=== PATIENT | female | born 1965 | race Caucasian/White ===

== ENCOUNTER 2017-04-09 07:32 | Inpatient (IN) | END 2017-04-11 17:20 | disposition home or self-care (01) | DRG 394 ==

== ENCOUNTER 2017-06-24 21:14 | Emergency (ER) | END 2017-06-25 01:38 | disposition home or self-care (01) ==

== ENCOUNTER 2017-09-04 16:05 | Emergency (ER) | END 2017-09-04 18:02 | disposition home or self-care (01) ==

== ENCOUNTER 2018-07-11 10:41 | Emergency (ER) | payer OTHER ==
[~2018-07-11] VITALS: Ht 165.1 cm; Wt 113.0 kg
[~2018-07-11 10:41] MED LIST: ALBU18HF INHALATION; ALBU2.5V3 NEB; ALBU8.5H8 INH; ATOR20TA38 PO; AZIT250T PO; CLON0.5T14 PO; CYCL10TA7 PO; DULA0.75 SQ; HYDR-4011 PO; IBUP-1544 PO; INSU100C SQ; LAMO25TA8 PO; LANT3I SC; METH750T93 PO; PRAM0.2539 PO
[2018-07-11 10:48] VITALS: Ht 165.1 cm; Wt 113.0 kg
[2018-07-11] MEDS ORDERED: HYDROmorphONE 1 MG/ML SYG IV STA ×2 (11:47→13:45)
[2018-07-11] MEDS ORDERED: SOD CHLORIDE 0.9% 1,000 ML IV STA (11:47)
[2018-07-11] MEDS ORDERED: ONDANSETRON 4 MG INJ IV STA ×3 (11:47→13:45)
[2018-07-11] MEDS ORDERED: KETOROLAC 30 MG INJ IV STA (11:47)
[2018-07-11] MEDS ORDERED: DIAZEPAM 5 MG/ML SYG IV ONE (12:00)
[2018-07-11] MEDS ORDERED: ATOR20TA38 PO (12:55)
[2018-07-11] MEDS ORDERED: LAMO100T PO (12:55)
[2018-07-11] MEDS ORDERED: ERGO500013 PO (12:56)
[2018-07-11] MEDS ORDERED: ESCI10TA48 PO (12:56)
[2018-07-11] MEDS ORDERED: LANT3I SC (12:57)
[2018-07-11] MEDS ORDERED: GABA300C16 PO (12:57)
[2018-07-11] MEDS ORDERED: PRAM0.25 PO (12:57)
[2018-07-11] MEDS ORDERED: INSU100C SQ (12:58)
[2018-07-11] MEDS ORDERED: DULA1.5P SQ (12:59)
[2018-07-11] MEDS ORDERED: TRAZ-111 PO (12:59)
[2018-07-11] MEDS ORDERED: MELA10CA PO (13:00)
[2018-07-11] MEDS ORDERED: METHYLPREDNISOLONE 125 MG INJ IV ONE (13:30)
[2018-07-11] MEDS ORDERED: HYDROmorphONE 2 MG/ML SYG IV STA (13:34)
--- NOTE | 2018-07-11 13:34 | ERD ---
ER Documentation Chief Complaint Chief Complaint CHRONIC BILATERIAL LEG PAIN CAN'T CONTROL PAIN HPI This is a 52-year-old female with a known history of chronic back pain. The patient had 2 previous surgeries with left foot drop. Her neurosurgeon is Dr. Ashton. The patient is scheduled to see him for a follow-up appointment on July 25, in two weeks, which was able to be moved up as she has been experiencing a significant amount of lower back pain. She has a chronic pain specialist who she sees and is currently waiting for pain patches. The patient presents to the emergency department today stating that she is having worsening of her symptoms. She states the pain is 10 out of 10 in intensity and now radiates down the la teral aspect of her right leg. The patient has been experiencing urinary incontinence but she states this is been present for over several months and has undergone an MRI. This is not a new neurological finding according to the patient. The patient denies any saddle anesthesia. She said no fevers or shaking or chills. She denies any alleviating factors to the pain and states the pain is exacerbated with movement. ROS All systems reviewed and are negative except as per history of present illness. Medications Home Meds Reported Medications Melatonin (Melatonin) 10 Mg Capsule, 10 MG PO HS PRN for PRN, CAP 07/11/18 Trazodone Hcl* (Trazodone Hcl*) 50 Mg Tablet, 50 MG PO QHS PRN for NEEDED, #30 TAB 07/11/18 Dulaglutide (Trulicity) 1.5 Mg/0.5 Ml Pen.injctr, 1.5 MG SQ Q WED 07/11/18 Insulin Lispro (Humalog) 100 Unit/1 Ml Cartridge, 0 SQ WITH MEALS, EA INJECT 15-30 UNITS TID WITH MEALS 07/11/18 Insulin Glargine* (Lantus*) 100 Unit/Ml Soln, 30 UNIT SC QHS, #1 VIAL 07/11/18 Pramipexole* (Pramipexole*) 0.25 Mg Tablet, 0.25 MG PO NEEDED, TAB 07/11/18 Gabapentin* (Gabapentin*) 300 Mg Capsule, 600 MG PO TID, #180 CAP 07/11/18 Ergocalciferol (Vitamin D2) (VITAMIN D2) 50,000 Unit Capsule, 31313 UNIT PO Q SUN, CAP 07/11/18 Escitalopram Oxalate* (Escitalopram Oxalate*) 10 Mg Tablet, 10 MG PO DAILY, #30 TAB 07/11/18 Atorvastatin Calcium* (Atorvastatin Calcium*) 20 Mg Tablet, 20 MG PO QHS, #30 TAB 07/11/18 Lamotrigine* (Lamotrigine*) 100 Mg Tablet, 100 MG PO QHS, TAB 07/11/18 Discontinued Reported Medications Albuterol Sulfate* (Albuterol Sulfate* Neb) 0.083%-3 Ml Neb, 1.25 MG NEB Q4H, #30 VIAL 06/24/17 Albuterol Sulfate* (Proair HFA*) 8.5 Gm Hfa.aer.ad, 2 PUFF INH Q4, #1 INHALER 06/24/17 Hydrocodone/Acetaminophen ([place] 5-325 Tablet) 1 Each Tablet, 1 EACH PO, TAB 06/24/17 Atorvastatin Calcium* (Atorvastatin Calcium*) 20 Mg Tablet, 20 MG PO QHS, #30 TAB 06/24/17 Ibuprofen* (Ibuprofen*) 800 Mg Tablet, 800 MG PO Q8, TAB 06/24/17 Cyclobenzaprine Hcl* (Cyclobenzaprine Hcl*) 10 Mg Tablet, 10 MG PO Q8 PRN for MUSCLE SPASMS, #60 TAB 06/24/17 Dulaglutide (Trulicity) 0.75 Mg/0.5 Ml Pen.injctr, 0.75 MG SQ QFRIDAY INJECT EVERY Saturday06/24/17 Insulin Lispro (Humalog) 100 Unit/1 Ml Cartridge, 50 UNIT SQ, EA 04/09/17 Insulin Glargine* (Lantus*) 100 Unit/Ml Soln, 70 UNIT SC QHS, #1 VIAL 04/09/17 Discontinued Scripts Methocarbamol* (Robaxin*) 750 Mg Tablet, 750 MG PO TID for muscle spasm, #20 TAB Prov:JONELLE PETERSEN DO 09/04/17 Hydrocodone/Acetaminophen ([place] 5-325 Tablet) 1 Each Tablet, 1 TAB PO Q6H PRN for PAIN, #15 TAB Prov:JONELLE PETERSEN DO 09/04/17 Albuterol Sulfate* (Ventolin HFA*) 18 Gm Hfa.aer.ad, 2 PUFF INHALATION Q4H, #1 INHALER Prov:MARCELO MOORE 06/25/17 Azithromycin* (Zithromax*) 250 Mg Tablet, 250 MG PO .ZPACK DIRECTED, #6 TAB TAKE 500 MG (2 TABS) THE FIRST DAY THEN 250 MG (1 TAB) DAYS 2-5 Prov:MARCELO MOORE Demetrio. 06/25/17 Albuterol Sulfate* (Albuterol Sulfate* Neb) 0.083%-3 Ml Neb, 2.5 MG NEB Q4 PRN for SHORTNESS OF BREATH, #30 EA Prov:MARCELO MOORE Atilio 06/25/17 Pramipexole* (Mirapex*) 0.25 Mg Tablet, 0.25 MG PO HS for 30 Days, TAB Prov:MARY ZAMORA MD 04/11/17 Lamotrigine* (Lamotrigine*) 25 Mg Tablet, 150 MG PO QHS for 30 Days, TAB Prov:MARY ZAMORA MD 04/11/17 Clonazepam* (Clonazepam*) 0.5 Mg Tablet, 0.5 MG PO AM for 30 Days, TAB Prov:MARY ZAMORA MD 04/11/17 Allergies Allergies: Coded Allergies: Penicillins (Unverified Allergy, Unknown, 07/11/18) PMhx/Soc History of Surgery: Yes ([id number], bowel [id number], lumBar [id number]) Anesthesia Reaction: No Hx Neurological Disorder: No Hx Respiratory Disorders: Yes (asthma) Hx Cardiac Disorders: No Hx Psychiatric Problems: Yes (bipolar disorder) Hx Miscellaneous Medical Probl: Yes (dm ) Hx Alcohol Use: No Hx Substance Use: Yes (marijuana) Hx Tobacco Use: Yes (cigarettes sometimes) Smoking Status: Current some day smoker Physical Exam Vitals Vital Signs Date Temp Pulse Resp B/P (MAP) Pulse Ox O2 O2 Flow FiO2 Time Delivery Rate 07/11/18 83 22 152/82 96 Room Air 12:24 (105) 07/11/18 98.5 92 20 109/63 96 10:48 (78) Physical Exam Constitutional:Well-developed. Well-nourished. Patient tearful lying in the left lateral decubitus position screaming in pain. HEENT:Normocephalic. Atraumatic.Pupils were equal round reactive to light. Moist mucous membranes.No tonsillar exudates. Respiratory: Not using accessory muscles of respiration.Lungs were clear to auscultation bilaterally. No rhonchi. No rales. No wheezing. Cardiovascular: Regular rate regular rhythm.No murmurs. No rubs were appreciated.S1, S2 normal. Distal pulses are palpable 2+ bilaterally. GI: Abdomen was obese so exam is limited due to body habitus nontender. Non Distended. No pulsatile abdominal masses or bruits. No rebound. No guarding. Bowel sounds were present and normal. Muscle skeletal: Patient ambulates with a walker. Straight leg test positive on the right. Foot drop present on the left. Skin: No petechia, no purpura. No lesions on the palms or the soles of the feet. No maculopapular rash. NEURO: Patient was alert, awake, orientated x3.No facial droop. Gait observed after pain control patient is able to ambulate with slow steady gait but utilizes a walker for assistance..Speech had regular rate and rhythm. No focal neurological deficits. Result Diagram: 07/11/18 1222 07/11/18 1222 Results 24 hrs Laboratory Tests Test 07/11/18 12:22 White Blood Count 16.7 10^3/ul Red Blood Count 5.36 10^6/ul Hemoglobin 15.7 g/dl Hematocrit 47.2 % Mean Corpuscular Volume 88.1 fl Mean Corpuscular Hemoglobin 29.3 pg Mean Corpuscular Hemoglobin Concent 33.3 g/dl Red Cell Distribution Width 14.4 % Platelet Count 342 10^3/UL Mean Platelet Volume 10.2 fl Immature Granulocytes % 0.400 % Neutrophils % 71.5 % Lymphocytes % 21.1 % Monocytes % 5.2 % Eosinophils % 1.4 % Basophils % 0.4 % Nucleated Red Blood Cells % 0.0 /100WBC Immature Granulocytes # 0.070 10^3/ul Neutrophils # 11.9 10^3/ul Lymphocytes # 3.5 10^3/ul Monocytes # 0.9 10^3/ul Eosinophils # 0.2 10^3/ul Basophils # 0.1 10^3/ul Nucleated Red Blood Cells # 0.0 10^3/ul Prothrombin Time 11.9 Sec Prothrombin Time Ratio 0.9 INR International Normalized Ratio 0.87 Activated Partial Thromboplast Time 27.5 Sec Sodium Level 139 mmol/L Potassium Level 4.3 mmol/L Chloride Level 104 mmol/L Carbon Dioxide Level 27 mmol/L Anion Gap 8 Blood Urea Nitrogen 7 mg/dl Creatinine 0.60 mg/dl Est Glomerular Filtrat Rate mL/min > 60 mL/min Glucose Level 137 mg/dl Calcium Level 9.8 mg/dl Total Bilirubin 0.4 mg/dl Direct Bilirubin 0.00 mg/dl Indirect Bilirubin 0.4 mg/dl Aspartate Amino Transf (AST/SGOT) 18 IU/L Alanine Aminotransferase (ALT/SGPT) 16 IU/L Alkaline Phosphatase 68 IU/L Total Protein 7.7 g/dl Albumin 4.3 g/dl Globulin 3.40 g/dl Albumin/Globulin Ratio 1.26 Current Medications Medications Dose Sig/Rufus Start Time Status Last (Trade) Ordered Route PRN Stop Time Admin Dose Reason Admin Sodium 1,000 ml @ Q1H STAT 07/11/18 DC 07/11/18 Chloride 1,000 mls/hr IV 11:47 13:01 07/11/18 12:46 1 mg ONCE STAT 07/11/18 DC 07/11/18 Hydromorphone IV 11:47 12:16 HCl 07/11/18 11:50 (Dilaudid) Ondansetron 4 mg ONCE STAT 07/11/18 DC 07/11/18 HCl (Zofran IV 11:47 12:16 Inj) 07/11/18 11:50 Ketorolac 30 mg ONCE STAT 07/11/18 DC 07/11/18 Tromethamine IV 11:47 13:01 (Toradol) 07/11/18 11:50 Diazepam 5 mg ONCE ONCE 07/11/18 DC 07/11/18 (Valium) IV 12:00 12:32 07/11/18 12:01 125 mg ONCE ONCE 07/11/18 DC 07/11/18 Methylprednis IV 13:30 13:26 olone Sodium 07/11/18 13:31 Succinate (Solu-Medrol) Procedures/MDM The patient presented to the emergency department with back pain. My differential diagnosis included but was not limited to spinal origins of the pain such as fracture, osteomyelitis, epidural abscess, neoplasm, spondylolish tesis, discogenic, cauda equina syndrome or musculoligamentous. Nonspinal causes such as AAA, upper UTI, renal colic, aortic dissection, abdominal neoplasm were also considered as an etiology into their pain. The patient had no new focal neurological deficits. I did feel her symptoms were result of lumbar radiculopathy. The patient received multiple doses of opiate analgesic medication, IV steroids and IV muscle relaxants. Her pain has now completely resolved. She was able to ambulate again utilizing a walker as this is what she requires at home. She does have a neurosurgical appointment follow-up in 2 weeks. She requested a prescription for muscle relaxants. This was provided to the patient after reviewing [facility]. The patient had leukocytosis with no left shift. This was thought to be secondary to her steroid use that she stated she just recently completed a Medrol Dosepak. She had no severe electrolyte abnormalities. The patient was discharged home in fair condition. They were instructed to return to the emergency department at any time if there was any worsening of their condition. The patient stated they would follow up with their PCP in the next 24-48 hours to initiate a suitable medication regimen under the care of their PCP as well as to allow their PCP to monitor any drug reactions. The patient was discharged home with prescriptions after they gave informed consent to the new medication. They were also fully informed by myself on the adverse e ffects and adverse drug interactions in order to provide adequate safeguards to prevent possible adverse reactions to medications. Departure Diagnosis: Primary Impression: Lumbar radiculopathy, chronic Condition: MARTHA Wolff MD July 11, 2018 13:34
[2018-07-11 13:43] VITALS: BP 124/94; PULSE 90; RESP 22
[2018-07-11] MEDS ORDERED: DIAZ5TAB PO (13:46)
== END 2018-07-11 14:08 | disposition home or self-care (01) ==
LOC: E/R 10:41
DX: M54.16 Radiculopathy, lumbar region (principal); J45.909 Unspecified asthma, uncomplicated; E11.9 Type 2 diabetes mellitus without complications; F17.210 Nicotine dependence, cigarettes, uncomplicated; Z79.4 Long term (current) use of insulin
CPT/HCPCS: 36415; 80053; 85025; 85610; 85730; 96361; 96374; 96375; 96376; J1170; J1885; J2405; J2930; J3360; J7030; Z7502

== ENCOUNTER 2018-08-26 04:20 | Inpatient (IN) | payer OTHER ==
[~2018-08-26] VITALS: Ht 165.1 cm; Wt 113.0 kg
[2018-08-26] VITALS (16 sets, daily range): BP systolic 117–212; BP diastolic 62–149; PULSE 96–118; RESP 17–26; Ht 165.1 cm; Wt 113.0 kg
[~2018-08-26 04:20] MED LIST changes: -ALBU18HF INHALATION; -ALBU2.5V3 NEB; -ALBU8.5H8 INH; -AZIT250T PO; -CLON0.5T14 PO; -CYCL10TA7 PO; +DIAZ5TAB PO; -DULA0.75 SQ; +DULA1.5P SQ; +ERGO500013 PO; +ESCI10TA48 PO; +GABA300C16 PO; -HYDR-4011 PO; -IBUP-1544 PO; +LAMO100T PO; -LAMO25TA8 PO; +MELA10CA PO; -METH750T93 PO; +PRAM0.25 PO; -PRAM0.2539 PO; +TRAZ-111 PO
[2018-08-26] MEDS ORDERED: ONDANSETRON 4 MG INJ IV STA ×2 (04:43→07:52)
[2018-08-26] MEDS ORDERED: SOD CHLORIDE 0.9% 500 ML IV STA (04:43)
[2018-08-26] MEDS ORDERED: HYDROmorphONE 1 MG/ML SYG IV STA ×2 (04:43→07:52)
--- NOTE | 2018-08-26 05:48 | ERD ---
ER Documentation Chief Complaint Chief Complaint BACK SX Aug, BACK PAIN, DISCHARGE, VOMITING HPI Is a 52-year-old female comes in with intractable back pain status post a August [address] Hernandez. Pain is uncontrolled at home. She has had some mild discharge from the surgical site. Denies any actual purulent drainage but says there is some yellowish fluid draining. Denies any numbness or tingling. Denies any other current issues. ROS All systems reviewed and are negative except as per history of present illness. Medications Home Meds Active Scripts Diazepam* (Valium*) 5 Mg Tablet, 5 MG PO Q8 PRN for MUSCLE SPASMS, #20 TAB Prov:MARTHA MARROQUIN MD 07/11/18 Reported Medications Melatonin (Melatonin) 10 Mg Capsule, 10 MG PO HS PRN for PRN, CAP 07/11/18 Trazodone Hcl* (Trazodone Hcl*) 50 Mg Tablet, 50 MG PO QHS PRN for NEEDED, #30 TAB 07/11/18 Dulaglutide (Trulicity) 1.5 Mg/0.5 Ml Pen.injctr, 1.5 MG SQ Q WED 07/11/18 Insulin Lispro (Humalog) 100 Unit/1 Ml Cartridge, 0 SQ WITH MEALS, EA INJECT 15-30 UNITS TID WITH MEALS 07/11/18 Insulin Glargine* (Lantus*) 100 Unit/Ml Soln, 30 UNIT SC QHS, #1 VIAL 07/11/18 Pramipexole* (Pramipexole*) 0.25 Mg Tablet, 0.25 MG PO NEEDED, TAB 07/11/18 Gabapentin* (Gabapentin*) 300 Mg Capsule, 600 MG PO TID, #180 CAP 07/11/18 Ergocalciferol (Vitamin D2) (VITAMIN D2) 50,000 Unit Capsule, 91720 UNIT PO Q SUN, CAP 07/11/18 Escitalopram Oxalate* (Escitalopram Oxalate*) 10 Mg Tablet, 10 MG PO DAILY, #30 TAB 07/11/18 Atorvastatin Calcium* (Atorvastatin Calcium*) 20 Mg Tablet, 20 MG PO QHS, #30 TAB 07/11/18 Lamotrigine* (Lamotrigine*) 100 Mg Tablet, 100 MG PO QHS, TAB 07/11/18 Allergies Allergies: Coded Allergies: Penicillins (Unverified Allergy, Unknown, 07/11/18) PMhx/Soc History of Surgery: Yes ([id number], bowel [id number], lumBar [id number]) Anesthesia Reaction: No Hx Neurological Disorder: No Hx Respiratory Disorders: Yes (asthma) Hx Cardiac Disorders: No Hx Psychiatric Problems: Yes (bipolar disorder) Hx Miscellaneous Medical Probl: Yes (dm ) Hx Alcohol Use: No Hx Substance Use: Yes (marijuana) Hx Tobacco Use: Yes (cigarettes sometimes) Physical Exam Vitals Vital Signs Date Temp Pulse Resp B/P (MAP) Pulse Ox O2 O2 Flow FiO2 Time Delivery Rate 08/26/18 98.2 101 18 39/65 (56) 95 04:22 Physical Exam Const: No acute distress Head: Atraumatic Eyes: Normal Conjunctiva ENT: Normal External Ears, Nose and Mouth. Neck: Full range of motion. No meningismus. Resp: Clear to auscultation bilaterally Cardio: Regular rate and rhythm, no murmurs Abd: Soft, non tender, non distended. Normal bowel sounds Skin: No petechiae or rashes Back: No midline or flank tenderness Ext: No cyanosis, or edema Neur: Awake and alert Psych: Normal Mood and Affect Result Diagram: 08/26/18 0459 Results 24 hrs Laboratory Tests Test 08/26/18 04:59 White Blood Count 20.5 10^3/ul Red Blood Count 5.29 10^6/ul Hemoglobin 15.4 g/dl Hematocrit 46.7 % Mean Corpuscular Volume 88.3 fl Mean Corpuscular Hemoglobin 29.1 pg Mean Corpuscular Hemoglobin Concent 33.0 g/dl Red Cell Distribution Width 14.1 % Platelet Count 304 10^3/UL Mean Platelet Volume 10.4 fl Immature Granulocytes % 0.900 % Neutrophils % 95.1 % Lymphocytes % 1.7 % Monocytes % 2.0 % Eosinophils % 0.0 % Basophils % 0.3 % Nucleated Red Blood Cells % 0.0 /100WBC Immature Granulocytes # 0.190 10^3/ul Neutrophils # 19.5 10^3/ul Lymphocytes # 0.3 10^3/ul Monocytes # 0.4 10^3/ul Eosinophils # 0.0 10^3/ul Basophils # 0.1 10^3/ul Nucleated Red Blood Cells # 0.0 10^3/ul Current Medications Medications Dose Sig/Rufus Start Time Status Last (Trade) Ordered Route PRN Stop Time Admin Dose Reason Admin Sodium 500 ml @ Q1H STAT 08/26/18 DC 08/26/18 Chloride 500 mls/hr IV 04:43 05:07 08/26/18 05:42 1 mg ONCE STAT 08/26/18 DC 08/26/18 Hydromorphone IV 04:43 05:07 HCl 08/26/18 04:44 (Dilaudid) Ondansetron 4 mg ONCE STAT 08/26/18 DC 08/26/18 HCl (Zofran IV 04:43 05:05 Inj) 08/26/18 04:44 Procedures/MDM Medical decision making: Patient has evidence of surgical site infection. Start antibiotics. Given pain medications. Patient will be admitted with Dr. Hernandez's consult pending insurance authorization. Departure Diagnosis: Primary Impression: Postoperative complication Surgical complication system/body Area: skin Surgical complication type: unspecified Procedure type: non-dermatologic Qualified Codes: L76.82 - Other postprocedural complications of skin and subcutaneous tissue Condition: Serious MARCELO MOORE Aug 26, 2018 05:48
[2018-08-26] MEDS ORDERED: VANCOMYCIN 1 GM (PMX) 250 ML IVPB ONE (06:00)
[2018-08-26] MEDS ORDERED: CLINDAMYCIN 600 MG INJ IVPB ONE (06:00)
[2018-08-26] MEDS ORDERED: CLINDAMYCIN 600 MG/D5W (PMX) 50 ML IVPB SCH (06:30)
[2018-08-26] MEDS ORDERED: IPRATROPIUM (NEB) 0.5 MG/2.5 ML AMP NEB STA (06:39)
[2018-08-26] MEDS ORDERED: ALBUTEROL 0.083% (NEB) 2.5 MG/3 ML AMP NEB STA (06:39)
[2018-08-26] MEDS: HYDROmorphONE 1 MG/ML SYG IV PRN ×2 (11:49→14:51)
[2018-08-26] MEDS: INSULIN ASPART [NOVOLOG] 3 ML PEN SC SCH ×3 (12:00→21:00)
[2018-08-26] MEDS ORDERED: ZOLPIDEM 5 MG TAB PO PRN (12:00)
[2018-08-26] MEDS ORDERED: DEXTROSE 5%-0.45% NACL 1,000 ML IV SCH (12:00)
[2018-08-26] MEDS ORDERED: VANCOMYCIN IV PER PHARMACY XX SCH ×2 (12:00→23:30)
--- NOTE | 2018-08-26 12:29 | HP ---
DATE OF ADMISSION: 08/26/2018 CHIEF COMPLAINT: Back pain. HISTORY OF PRESENT ILLNESS: A 52-year-old moderately obese female, status post lumbar laminectomy on 08/13/[address] Goyal, presents to the Emergency Room with complaints of severe low back pain. Leon ruff has noted some yellowish fluid draining from her surgical site. She has a chronic right foot d rop. White blood cell count was elevated at 20,500. Patient was evaluated by Dr. Goyal and planned to undergo I and D of the surgical site. PAST MEDICAL HISTORY: 1. Type 2 diabetes mellitus. 2. Hyperlipidemia. 3. Chronic asthma. 4. Chronic back pain. 5. Bipolar affective disorder. PAST SURGICAL HISTORY: Status post lumbar laminectomy on 08/13/2018. MEDICATIONS PRIOR TO ADMISSION: 1. Valium. 2. Melatonin. 3. Trazadone. 4. Trulicity. 5. Insulin. 6. Pramipexole. 7. Gabapentin. 8. Lexapro. 9. Lipitor. 10. Lamotrigine. THE PATIENT IS ALLERGIC TO PENICILLIN. SOCIAL HISTORY: Patient lives at home. She denies tobacco or alcohol use. PHYSICAL EXAMINATION: GENERAL: Well-developed, well-nourished, moderately obese female who is in mild distress. VITAL SIGNS: Stable. She is afebrile. HEENT: Extraocular muscles intact. Pupils equal and reactive to light bilaterally. Sclerae are ani cteric. Oropharynx is clear and moist. NECK: Supple, no JVD, no carotid bruits. LUNGS: Clear to auscultation bilaterally. CARDIAC: Regular rate and rhythm. No murmurs or gallops. ABDOMEN: Soft, obese, nontender, nondistended, normoactive bowel sounds. EXTREMITIES: No clubbing, cyanosis, or edema. Low back with incision with the surgical incision sit e. There is no surrounding erythema. NEUROLOGICAL: The patient has right-sided foot drop. LABORATORY DATA: Hemoglobin is 15.4, platelet count 304,000. Basic metabolic panel and liver functi on tests are all within normal limits. Albumin is 3.6. ASSESSMENT: 1. A 52-year-old female status post lumbar laminectomy involving L3-L4 on 08/13/2018. 2. Postop wound infection. 3. Chronic right foot drop. 4. Type 2 diabetes mellitus. 5. Hyperlipidemia. 6. Chronic asthma, compensated. 7. Bipolar affective disorder. PLAN: 1. Admit to med/surg, keep patient n.p.o., IV vancomycin and Zosyn. 2. Patient is cleared medically to undergo incision and drainage of the wound. Dictated By: MICHAEL SALAMANCA MD SK/NTS Conf#: [id number] DID#: [id number] CC: VANI GOYAL MD;*End*
[2018-08-26] MEDS ORDERED: GLUCAGON 1 MG INJ IM PRN (12:30)
[2018-08-26] MEDS ORDERED: GLUCOSE GEL 15 GRAM TUBE BUCCAL PRN (12:30)
[2018-08-26] MEDS ORDERED: GLUCOSE GEL 15 GRAM TUBE PO PRN ×2 (12:30)
[2018-08-26] MEDS ORDERED: DEXTROSE 50% 50 ML SYRINGE IV PRN ×2 (12:30)
[2018-08-26] MEDS ORDERED: VANCOMYCIN 1 GM 250 ML IVPB SCH (13:00)
[2018-08-26] MEDS ORDERED: LEVOFLOXACIN 750MG/D5W (PMX) 150 ML IVPB SCH (13:30)
[2018-08-26] MEDS: ONDANSETRON 4 MG INJ IV PRN (14:59)
--- NOTE | 2018-08-26 17:41 | CONS ---
Assessment/Plan Assessment/Plan Assessment/Plan (Daily) Date of consultation: 08/26/2018 Requesting physician:Dr. Akbar with the emergency department Consulting service: Neurosurgery This is a 52-year-old female with past medical history significant for obesity, diabetes, hyperlipidemia, chronic pain with a long history of chronic back pain. The patient has undergone at least 3 lumbar surgeries in the past. She had initially undergone a reported L4-5 laminectomy, microdiscectomy by another neurosurgeon several years ago followed by a subsequent redo surgery several months later for what the patient believes to have been recurrent stenosis/disc herniation. According to the patient she was left with partial left foot drop at the time. Ever since then she has had increased low back pain and bilateral lower extremity pain. More recently, the patient developed further excruciating pain radiating down the right lower extremity associated with numbness and weakness. She was found to have an L3-4 disc herniation on the right. She underwent a minimally invasive L3-4 laminectomy, medial facetectomy/foraminotomy and microdiscectomy approximately 2 weeks ago on an outpatient basis. The patient did very well postoperatively and as a matter of fact her preoperative right lower extremity radiating pain and numbness significantly improved if not fully resolved up until approximately 2-3 days ago. The patient noticed increased axial low back pain and also noticed intermittent "yellowish thin" discharge from her small lumbar incision. She contacted my office yesterday in regards to the lumbar incision and a prescription for clindamycin was sent to her pharmacy and appointment was given to the patient to follow-up with me today in clinic. However, since the patient was having more low back pain and some nausea, she presented to the emergency department instead overnight. She was found to have an elevated white blood cell count greater than 20 and neurosurgery has been consulted. The patient has not had any vomiting but has nausea. She denies headaches, diplopia, blurriness of her vision. She has poor appetite starting yesterday. She denies dysuria. She denies radiating pain or numbness down her lower extremities. However, any movement causes increased low back pain. The patient sees pain management for chronic pain and has been previously rec eived narcotic medications. She is currently receiving a Butrans patch. Past medical history: Please see above + asthma, bipolar affective disorder, L4- 5 laminectomy 2 (by another surgeon several years ago), L3-4 laminectomy and microdiscectomy (2 weeks ago) Allergies: Penicillin? (The patient has already received Ancef during her most recent lumbar surgery without any side effects) Review of systems: The patient denies chest pain or shortness of breath. Please see above for pertinent positives and negatives. Family history: Not contributory Social history: Denies use of EtOH, tobacco, illicit or recreational drugs. Physical examination: This is a middle-aged obese female lying in bed. She appears to be in some distress that she relates to low back pain with movement. Patient is awake alert and oriented 4. Language is fluent. Face is symmetric. Extraocular movements are grossly normal. Tongue is midline. Shoulder shrugs are symmetric. Muscle bulk and tone is normal bilateral upper and lower extremities. Deep tendon reflexes are 1+ bilateral upper and lower extremities. Sensation to light touch is decreased involving the left posterior lateral leg and the dorsum of the left foot more than the plantar surface of the left foot. Motor Strength bilateral upper extremities is 5- out of 5. Motor strength bilateral lower extremities proximally is 4- out of 5 and limited secondary to pain. Motor strength with right ankle dorsiflexion and plantar flexion is at least 4+ out of 5, left ankle dorsiflexion 2 out of 5 (per previous baseline), left ankle plantar flexion 4 out of 5. There is no Danilo sign present bilaterally. There is no dysdiadochokinesia bilaterally. There is no dysmetria bilaterally. Toes are downgoing bilaterally. Gait testing has been deferred due to the patient's severe low back pain pain. CERVICAL SPINE: Examination of the cervical spine reveals no significant rigidity or pain. CERVICAL SPINE ACTIVE RANGE OF MOTION: Near full. LUMBOSACRAL SPINE: Examination of the lumbar spine reveals the patient's most recent small right paraspinal vertical incision to have a scab in the superior two thirds and a small area of dehiscence in the inferior one third of the incision. There is no significant jarrett-incisional erythema. There is a small amount of serosanguineous discharge. There is no obvious purulent drainage seen. LUMBOSACRAL SPINE ACTIVE RANGE OF MOTION: Cannot be done due to the patient's low back pain. Imaging: None imaging studies available. Assessment/plan: This is a middle-aged obese diabetic patient with chronic back pain status post multiple lumbar surgeries in the past with the most recent taking place 2 weeks ago as described above. The patient is at her baseline neurologic status (left partial foot drop related to the patient's initial operation done by another neurosurgeon several years ago) with an fact improvement/near full resolution of her preoperative right lower extremity radicular pain after her most recent lumbar surgery 2 weeks ago. The patient has had 2-3 days of increased low back pain without radicular pain or new sensory motor deficits. The patient's small lumbar incision does not have erythema and purulent drainage but there is some dehiscence of the inferior part of the incision with a small amount of serosanguineous drainage that may be related to an infection in the setting of her elevated white blood cell count. Suspicion for a surgical related CSF leak is low given the fact that there was no intraoperative CSF leak during the patient's surgery 2 weeks ago. As I have explained to the patient, I would recommend exploration of her wound for closer intraoperative inspection under the microscope, irrigation and possible debridement of the wound, reapproximation of the wound and possible placement of an epifascial drain that will remain in place for the next 5-7 days even while the patient is at home. I have also discussed the risks and benefits of the above operation to the patient and her mother in detail with the risks including bleeding, infection, weakness, numbness, paralysis, bowel or bladder function, cerebrospinal fluid leak, failure of improvement of symptoms or worsening of her symptoms, need for further surgeries including redo decompression or redo debridement or need for lumbar fusion as well as those risks associated with surgery and general anesthesia including deep venous thrombosis, pulmonary embolism, heart attack, stroke, pneumonia and . The patient will also need postoperative antibiotics. The patient and her mother fully understand the above discussion and wish to proceed with the above surgery. VANI GOYAL MD Aug 26, 2018 17:41
--- NOTE | 2018-08-26 17:45 | PREAC ---
Date/Time of Note Date/Time of Note DATE: 08/26/18 TIME: 17:44 Anesthesia Eval and Record Evaluation Time Pre-Procedure Interview DATE: 08/26/18 TIME: 17:44 Age 52 Sex female NPO: 8 hrs Preoperative diagnosis status post lumbar laminectomy Planned procedure exploration of lumbar wound, irrigation and debridement and possbile placement of drain Past Medical History Past Medical History: Includes Cardio: Dyslipidemia Endo: Diabetes Pulm: Asthma GI: Morbid obesity Psych: Bipolar Surgery & Anesthesia Issues No known issue Meds Anticoagulation: No Beta Shellie within 24 hr: No Reason Beta Shellie not given: Pt. not on B-Shellie Reported Medications Melatonin (Melatonin) 10 Mg Capsule, 10 MG PO HS PRN for PRN, CAP 07/11/18 Trazodone Hcl* (Trazodone Hcl*) 50 Mg Tablet, 50 MG PO QHS PRN for NEEDED, #30 TAB 07/11/18 Dulaglutide (Trulicity) 1.5 Mg/0.5 Ml Pen.injctr, 1.5 MG SQ Q WED 07/11/18 Insulin Lispro (Humalog) 100 Unit/1 Ml Cartridge, 0 SQ WITH MEALS, EA INJECT 15-30 UNITS TID WITH MEALS 07/11/18 Insulin Glargine* (Lantus*) 100 Unit/Ml Soln, 30 UNIT SC QHS, #1 VIAL 07/11/18 Pramipexole* (Pramipexole*) 0.25 Mg Tablet, 0.25 MG PO NEEDED, TAB 07/11/18 Gabapentin* (Gabapentin*) 300 Mg Capsule, 600 MG PO TID, #180 CAP 07/11/18 Ergocalciferol (Vitamin D2) (VITAMIN D2) 50,000 Unit Capsule, 29874 UNIT PO Q SUN, CAP 07/11/18 Escitalopram Oxalate* (Escitalopram Oxalate*) 10 Mg Tablet, 10 MG PO DAILY, #30 TAB 07/11/18 Atorvastatin Calcium* (Atorvastatin Calcium*) 20 Mg Tablet, 20 MG PO QHS, #30 TAB 07/11/18 Lamotrigine* (Lamotrigine*) 100 Mg Tablet, 100 MG PO QHS, TAB 07/11/18 Discontinued Scripts Diazepam* (Valium*) 5 Mg Tablet, 5 MG PO Q8 PRN for MUSCLE SPASMS, #20 TAB Prov:MARTHA MARROQUIN MD 07/11/18 Current Medications Hydromorphone HCl (Dilaudid) 1 mg Q3H PRN IV SEVERE PAIN LEVEL 7-10 Last administered on 08/26/18at 14:51; Admin Dose 1 MG; Start 08/26/18 at 11:45 Vancomycin HCl (Vanco Iv Per Pharmacy) VANCOMYCIN PER PHARMACY PER PROTOCOL XX ; Start 08/26/18 at 12:00 Levofloxacin/ Dextrose 150 ml @ 100 mls/hr Q24H IVPB Last administered on 08/26/18at 16:33; Admin Dose 100 MLS/HR; Start 08/26/18 at 13:30 Zolpidem Tartrate (Ambien) 5 mg HS MAY REPEAT X 1 PRN PO INSOMNIA; Start 08/26/18 at 12:00 Ondansetron HCl (Zofran Inj) 4 mg Q4H PRN IV NAUSEA AND/OR VOMITING Last administered on 08/26/18at 14:59; Admin Dose 4 MG; Start 08/26/18 at 12:00 Dextrose/Sodium Chloride 1,000 ml @ 125 mls/hr Q8H IV Last administered on 08/26/18at 13:52; Admin Dose 125 MLS/HR; Start 08/26/18 at 12:00 Insulin Aspart (Novolog Insulin Pen) NOVOLOG *MODERATE* ALGORITHM WITH MEALS BEDTIME SC ; Start 08/26/18 at 12:00 Miscellaneous Information 1 ea NOTE XX ; Start 08/26/18 at 12:30 Glucose (Glutose) 15 gm Q15M PRN PO DECREASED GLUCOSE; Start 08/26/18 at 12:30 Glucose (Glutose) 22.5 gm Q15M PRN PO DECREASED GLUCOSE; Start 08/26/18 at 12:30 Dextrose (D50w Syringe) 25 ml Q15M PRN IV DECREASED GLUCOSE; Start 08/26/18 at 12:30 Dextrose (D50w Syringe) 50 ml Q15M PRN IV DECREASED GLUCOSE; Start 08/26/18 at 12:30 Glucagon (Glucagen) 1 mg Q15M PRN IM DECREASED GLUCOSE; Start 08/26/18 at 12:30 Glucose (Glutose) 15 gm Q15M PRN BUCCAL DECREASED GLUCOSE; Start 08/26/18 at 12:30 Vancomycin HCl 1.75 gm/Sodium Chloride 500 ml @ 125 mls/hr Q12H IVPB ; Start 08/27/18 at 01:00 Meds reviewed: Yes Allergies Coded Allergies: Penicillins (Unverified Allergy, Unknown, 08/26/18) Allergies Reviewed: Yes Labs/Studies Labs Reviewed: Reviewed by anesthesiologist Result Diagram: 08/26/18 0459 08/26/18 0459 Laboratory Tests 08/26/18 04:59 test: Negative Pre-procedure Exam Last vitals Vital Signs Date Temp Pulse Resp B/P (MAP) Pulse Ox O2 O2 Flow FiO2 Time Delivery Rate 08/26/18 98.9 105 18 141/62 96 15:01 (88) 08/26/18 Room Air 10:01 08/26/18 28 07:42 08/26/18 3.0 06:42 Airway: Adequate mouth opening, Adequate thyromental dist Mallampati: Mallampati II Teeth: Abnormal (chipped tooth which needs crown) Lung: Normal Heart: Normal ASA Physical Status ASA physical status: 3 Emergency: None Planned Anesthetic General/MAC: ETT Planned Pain Management Parenteral pain med Pre-operative Attestations Prior to commencing anesthesia and surgery, the patient was re-evaluated, there was verification of: *The patient's identity *The results of appropriate recent lab work and preoperative vital signs *The above evaluation not changing prior to induction *Anesthetic plan, risk benefits, alternative and complications discussed with patient/family; questions answered; patient/family understands, accepts and wishes to proceed. RINKU BARR MD Aug 26, 2018 17:45
[2018-08-26] MEDS ORDERED: BUPIVACAINE 0.5% (SDV) 30 ML INJ ONE (17:47)
[2018-08-26] MEDS ORDERED: LIDOCAINE 1%/EPI 30 ML INJ ONE (17:47)
[2018-08-26] MEDS ORDERED: GELATIN SIZE 100 SPONGE ONE (17:47)
[2018-08-26] MEDS ORDERED: THROMBIN 5000 UNIT (RECOTHROM) VIAL ONE (17:47)
[2018-08-26] MEDS ORDERED: POLYMYXIN/BACITRACIN 1L IRRIG ONE (17:48)
[2018-08-26] MEDS ORDERED: FENTAnyl 50 MCG/ML VIAL IV PRN (18:00)
[2018-08-26] MEDS ORDERED: ONDANSETRON 4 MG INJ IV PRN (18:00)
[2018-08-26] MEDS ORDERED: PROCHLORPERAZINE 10 MG INJ IV PRN (18:00)
[2018-08-26] MEDS ORDERED: LABETALOL HCL 20MG INJ IV PRN (18:00)
[2018-08-26] MEDS ORDERED: hydrALAzine 20 MG INJ IV PRN (18:00)
[2018-08-26] MEDS ORDERED: MEPERIDINE 25 MG INJ IV PRN (18:00)
[2018-08-26] MEDS ORDERED: DIPHENHYDRAMINE 50 MG INJ IV PRN (18:00)
[2018-08-26] MEDS ORDERED: HYDROmorphONE 1 MG/5 ML IV SYRINGE IV PRN ×3 (18:00)
[2018-08-26] MEDS ORDERED: SEVOFLURANE 15 MIN ONE (18:10)
[2018-08-26] MEDS ORDERED: PIPER-TAZO 3.375 GM IV (PMX) 100 ML ONE (18:13)
[2018-08-26] MEDS ORDERED: MIDAZOLAM 1 MG/ML 2 ML INJ ONE (18:18)
[2018-08-26] MEDS ORDERED: ONDANSETRON 4 MG INJ ONE (18:47)
[2018-08-26] MEDS ORDERED: FAMOTIDINE 20 MG INJ ONE (18:47)
[2018-08-26] MEDS ORDERED: LIDOCAINE 2% (SDV) 5 ML INJ ONE (18:47)
[2018-08-26] MEDS ORDERED: SUCCINYLCHOLINE CHLORIDE 100 MG/5 ML SYG IV ONE (18:47)
[2018-08-26] MEDS ORDERED: PHENYLephrine (100 MCG/ML) 10ML SYG ONE (18:47)
[2018-08-26] MEDS ORDERED: PROPOFOL 40 ML ONE (18:47)
[2018-08-26] MEDS ORDERED: NEOMYC/POLYMYX/BACIT 30 GM OINT ONE (19:30)
--- NOTE | 2018-08-26 19:58 | PAC ---
Date/Time of Note Date/Time of Note DATE: 08/26/18 TIME: 19:57 Post-Anesthesia Notes Post-Anesthesia Note Last documented vital signs Vital Signs Date Temp Pulse Resp B/P (MAP) Pulse Ox O2 O2 Flow FiO2 Time Delivery Rate 08/26/18 98.0 19:51 08/26/18 105 18 141/62 96 15:01 (88) 08/26/18 Nasal 2.0 12:00 Cannula 08/26/18 28 07:42 Activity: WNL Respiratory function: WNL Cardiovascular function: WNL Mental status: Baseline Pain reasonably controlled: Yes Hydration appropriate: Yes Nausea/Vomiting absent: Yes Comments BP: 133/75 HR: 99 RR: 15 T: 98 SaO2: 98% RINKU BARR MD Aug 26, 2018 19:58
[2018-08-26] MEDS ORDERED: traZODone 50 MG TAB PO PRN (20:00)
--- NOTE | 2018-08-26 20:02 | SIPON ---
Date/Time of Note Date/Time of Note DATE: 08/26/18 TIME: 20:00 Operative Report Preoperative Diagnosis Lumbar wound dehiscence Postoperative Diagnosis Same as above Operation/Procedure Performed Exploration of lumbar wound and epidural space Deep irrigation and debridement of wound Placement of subcutaneous drain Surgeon see signature line assisted living associate None Anesthesia: general Estimated blood loss: 0 - 10 ml's Transfusion Required none Specimen Deep lumbar culture Grafts/Implants none Complications none VANI GOYAL MD Aug 26, 2018 20:02
[2018-08-26] MEDS: ALBUTEROL/IPRATROPIUM (NEB) 3 ML AMP HHN SCH (21:00)
[2018-08-26] MEDS ORDERED: HYDROmorphONE 1 MG/ML SYG IV PRN ×3 (22:12→22:30)
[2018-08-26] MEDS ORDERED: VANCOMYCIN 1 GM (PMX) 250 ML IVPB SCH (23:00)
[2018-08-26] MEDS: GABAPENTIN 300 MG CAP PO SCH (23:08)
[2018-08-26] MEDS: LAMOTRIGINE 100 MG TAB PO SCH (23:08)
[2018-08-26] MEDS: ATORVASTATIN 20 MG TAB PO SCH (23:08)
[2018-08-26] MEDS: INSULIN GLARGINE [LANTus] (100 UNITS/ML) SYG SC SCH (23:26)
[2018-08-26] MEDS: ACETAMINOPHEN 325 MG TAB PO PRN (23:29)
--- NOTE | 2018-08-26 23:45 | OPR ---
Date/Time of Note Date/Time of Note DATE: 08/26/18 TIME: 23:45 Operative Report Procedure Date: Aug 26, 2018 Preoperative Diagnosis please see below. Postoperative Diagnosis please see below. Operation/Procedure Performed please see below. Surgeon see signature line Floral Merchandiser None Anesthesia Type: general Estimated Blood Loss: 0 - 10 ml's Transfusion none Specimen please see below. Grafts/Implants none Tubes/Drains please see below. Complications none Pt Condition Post Procedure: stable Disposition: PACU Procedure Description Date of operation: 08/26/2089 Operating surgeon: Vani Goyal M.D. Preoperative diagnosis: Lumbar wound dehiscence Post operative diagnosis: Lumbar wound dehiscence Procedure(s) performed: 1. Exploration of lumbar wound and epidural space 2. Deep irrigation and debridement of lumbar wound. 3. Reapproximation of lumbar wound in multiple layers 4. Placement of an epifascial drain 5. Intraoperative microscope with microdissection. Indication for procedure: Please look at the inpatient consultation note for a full set of indications. Description of operative procedure: The patient was brought to the operating room and after general anesthesia was obtained, she was placed prone on top of the Esvin frame. Her arms were abducted less than 90 and placed in superman position. All pressure points were noted and padded appropriately. The Esvin frame was raised. The patient's right small paraspinal lumbar incision was located. After the skin was prepped and draped under standard sterile fashion, the partial scab on the incision was fully removed and the skin edges were cut away. Two cotton swabs were put in the deep tissue for aerobic anaerobic culture and sent away. Antibiotics were given to the patient only after the wound culture was obtained. The small fascial defect from the patient's recent lumbar surgery was located by finger dissection and serial tube dilators were inserted through the fascial defect. The final tube dilator was inserted and locked to the table in that position. The operating microscope was brought into the field. The dura that had been exposed during the patient's prior decompressive surgery was visualized. The dura appeared to be grossly intact. There was no purulent drainage noted superficially or deep. The wound was copiously irrigated with antibiotic solution. The muscle and fascia layers were reapproximated with interrupted sutures under the microscope. Size 7 flat drain was placed in the epifascial space and the other end of it was brought out the skin away from the incision site. The dermal layer was reapproximated with interrupted sutures. The skin was reapproximated with a simple running Monocryl 2-0. The drain was secured at its exit site to the skin with a suture and connected to WILLIAMS bulb and activated. The incision and drain were covered up with a dressing. The patient was then placed supine on the hospital bed. She was then woken up, extubated and transported to the recovery room in stable condition. The patient was awake and alert in the recovery room and moving her upper and lower extremities to command per preoperative baseline. Estimated blood loss: Less than 10 cc Blood products administered: None Packs/drains: Size 10 flat drain Type of anesthesia: General Incision: Right paraspinal lumbar Skin closure: Simple running Monocryl 2-0 Wound classification: Clean contaminated Specimen removed: Lumbar deep wound culture Patient's condition: Stable Prognosis: Good VANI GOYAL MD Aug 26, 2018 23:45
[2018-08-27] VITALS (20 sets, daily range): BP systolic 76–173; BP diastolic 52–97; PULSE 84–113; RESP 15–35
[2018-08-27] MEDS: HYDROmorphONE 1 MG/ML SYG IV PRN ×3 (00:12→14:50)
[2018-08-27] MEDS ORDERED: VANCOMYCIN HCL 1.75 GM in SOD CHLORIDE 0.9% 500 ML IVPB SCH ×4 (01:00)
[2018-08-27] MEDS: ALBUTEROL/IPRATROPIUM (NEB) 3 ML AMP HHN SCH ×6 (01:00→19:19)
[2018-08-27] MEDS: INSULIN ASPART [NOVOLOG] 3 ML PEN SC SCH ×5 (07:35→20:51)
[2018-08-27] MEDS: PIPER-TAZO 3.375 GM IV (PMX) 100 ML IVPB SCH ×3 (08:46→20:41)
[2018-08-27] MEDS: GABAPENTIN 300 MG CAP PO SCH ×4 (09:00→20:54)
[2018-08-27] MEDS: PRAMIPEXOLE 0.25 MG TAB PO SCH (09:00)
[2018-08-27] MEDS: ESCITALOPRAM 10 MG TAB PO SCH (09:20)
[2018-08-27] MEDS: ONDANSETRON 4 MG INJ IV PRN ×3 (11:07→20:38)
--- NOTE | 2018-08-27 13:07 | PN ---
Date/Time of Note Date/Time of Note DATE: 08/27/18 TIME: 13:04 Subjective Patient reports feeling better. No abdominal pain, nausea, or vomiting. Low back pain improved Objective Vitals Vital Signs Date Temp Pulse Resp B/P (MAP) Pulse Ox O2 O2 Flow FiO2 Time Delivery Rate 08/27/18 98.5 84 18 113/92 95 Nasal 2.0 12:00 (99) Cannula 08/26/18 28 07:42 Intake and Output 08/26/18 08/26/18 08/27/18 1515:00 23:00 07:00 IntakeIntake Total 0 ml 1700 ml 950 ml OutputOutput Total 10 ml 1321 ml BalanceBalance 0 ml 1690 ml -371 ml Neck supple Clear to auscultation bilaterally Regular rate and rhythm Soft nontender nondistended normoactive bowel sounds Lumbar area with WILLIAMS drain in place No edema Results Result Diagram: 08/27/18 0427 08/26/18 0459 Medications Medications Current Medications Hydromorphone HCl (Dilaudid) 1 mg Q3H PRN IV SEVERE PAIN LEVEL 7-10 Last administered on 08/27/18at 11:07; Admin Dose 1 MG; Start 08/26/18 at 11:45 Zolpidem Tartrate (Ambien) 5 mg HS MAY REPEAT X 1 PRN PO INSOMNIA; Start 08/26/18 at 12:00 Ondansetron HCl (Zofran Inj) 4 mg Q4H PRN IV NAUSEA AND/OR VOMITING Last administered on 08/27/18at 11:07; Admin Dose 4 MG; Start 08/26/18 at 12:00 Insulin Aspart (Novolog Insulin Pen) NOVOLOG *MODERATE* ALGORITHM WITH MEALS BEDTIME SC Last administered on 08/27/18at 11:59; Admin Dose 2 UNIT; Start 08/26/18 at 12:00 Miscellaneous Information 1 ea NOTE XX ; Start 08/26/18 at 12:30 Glucose (Glutose) 15 gm Q15M PRN PO DECREASED GLUCOSE; Start 08/26/18 at 12:30 Glucose (Glutose) 22.5 gm Q15M PRN PO DECREASED GLUCOSE; Start 08/26/18 at 12:30 Dextrose (D50w Syringe) 25 ml Q15M PRN IV DECREASED GLUCOSE; Start 08/26/18 at 12:30 Dextrose (D50w Syringe) 50 ml Q15M PRN IV DECREASED GLUCOSE; Start 08/26/18 at 12:30 Glucagon (Glucagen) 1 mg Q15M PRN IM DECREASED GLUCOSE; Start 08/26/18 at 12:30 Glucose (Glutose) 15 gm Q15M PRN BUCCAL DECREASED GLUCOSE; Start 08/26/18 at 12:30 Albuterol/ Ipratropium (Duoneb) 3 ml Q4H RESP THERAPY HHN Last administered on 08/27/18at 08:40; Admin Dose 3 ML; Start 08/26/18 at 21:00 Atorvastatin Calcium (Lipitor) 20 mg QHS PO Last administered on 08/26/18 23:08; Admin Dose 20 MG; Start 08/26/18 at 21:00 Ergocalciferol (Drisdol) 50,000 unit Cunningham@0900 PO ; Start 08/31/18 at 09:00 Escitalopram Oxalate (Lexapro) 10 mg DAILY PO Last administered on 08/27/18 09:20; Admin Dose 10 MG; Start 08/27/18 at 09:00 Gabapentin (Neurontin) 600 mg TID PO Last administered on 08/26/18at 23:08; Admin Dose 600 MG; Start 08/26/18 at 21:00 Insulin Glargine (Lantus) 30 units QHS SC Last administered on 08/26/18at 23:26; Admin Dose 30 UNITS; Start 08/26/18 at 21:00 Lamotrigine (Lamictal) 100 mg QHS PO Last administered on 08/26/18 23:08; Admin Dose 100 MG; Start 08/26/18 at 21:00 Pramipexole (Mirapex) 0.25 mg DAILY PO ; Start 08/27/18 at 09:00 Trazodone HCl (Desyrel) 50 mg QHS PRN PO NEEDED; Start 08/26/18 at 20:00 Piperacillin Sod/ Tazobactam Sod 100 ml @ 200 mls/hr Q8 IVPB Last administered on 08/27/18at 08:46; Admin Dose 200 MLS/HR; Start 08/27/18 at 07:01 Acetaminophen (Tylenol Tab) 650 mg Q6H PRN PO MILD PAIN(1-3)OR ELEVATED TEMP Last administered on 08/26/18at 23:29; Admin Dose 650 MG; Start 08/26/18 at 23:00 Vancomycin HCl (Vanco Iv Per Pharmacy) VANCOMYCIN PER PHARMACY PER PROTOCOL XX ; Start 08/26/18 at 23:30 Vancomycin/Sodium Chloride 250 ml @ 83.333 mls/ hr Q12H IVPB ; Start 08/27/18 at 14:00 Miscellaneous Information (*Rx Drug Level Order Reminder*) VANCO TR AT 0100 0100 ONCE XX ; Start 08/29/18 at 01:00; Stop 08/29/18 at 01:01 VTE Prophylaxis Risk score (from [facility] [place])>0 risk: 3 SCD applied (from [facility] [place]): Yes Lines/Catheters IV Catheter Type: Saline Lock Locke in Place: No Assessment/Plan Assessment/Plan 52-year-old female with postop wound infection Postop day #1 lumbar exploration and irrigation Gram-negative humberto bacteremia of unclear source Status post L3-L4 laminectomy on August 13, 2018 Type 2 diabetes mellitus Hyperlipidemia Bipolar affective disorder Leukocytosis Continue vancomycin and Zosyn Check final blood culture results Transfer to [facility] Plan of care was discussed with Dr. Ashton and the patient MICHAEL SALAMANCA MD Aug 27, 2018 13:07
[2018-08-27] MEDS: VANCOMYCIN 1.5 GM/NS 250 ML 250 ML IVPB SCH (14:57)
[2018-08-27] MEDS: ATORVASTATIN 20 MG TAB PO SCH (20:40)
[2018-08-27] MEDS: LAMOTRIGINE 100 MG TAB PO SCH (20:40)
[2018-08-27] MEDS: INSULIN GLARGINE [LANTus] (100 UNITS/ML) SYG SC SCH ×3 (20:48→23:03)
[2018-08-27] MEDS: SOD CHLORIDE 0.9% 1,000 ML IV SCH (22:59)
[2018-08-27] MEDS: DOCUSATE SODIUM 100 MG CAP PO SCH (23:00)
--- NOTE | 2018-08-27 23:17 | PN ---
Date/Time of Note Date/Time of Note DATE: 08/27/18 TIME: 23:16 Assessment/Plan Assessment/Plan Date of progress note: 08/27/2018 The patient is postop day 1 status post exploration of her lumbar wound, I&D, reapproximation of the wound and placement of an epifascial drain. The patient is overall doing better compared to yesterday at the time of her admission. Her low back pain has markedly improved and the patient is overall more mobile at least in bed. Her nausea is also somewhat improved although she still has some nausea intermittently. She was able to have a small amount of food earlier today. She tried to get out of bed with physical therapy earlier today but got lightheaded and was not able to continue standing. Locke catheter is in place. She is awake alert and oriented 4. Her face is symmetric. Sensory motor exam is at her preoperative baseline with an established chronic left partial foot drop. The patient does not have any pain radiating down her lower extremities. Her lumbar incision is clean dry and intact with a dressing in place. The patient's WILLIAMS drain has put out less than 10 cc of serosanguineous discharge throughout the daytime today. Her white blood cell count had decreased to 7 last night and has gone up back to 20 this morning. She is on vancomycin and Zosyn at this time. The etiology of the patient's gram-negative humberto bacteremia is unclear at this time. Assessment/plan: The patient is overall improved clinically. She may get out of bed and ambulate with physical therapy tomorrow. The epifascial drain will need to be continued for the next week and can be continued even when the patient is discharged home with proper education by nurses prior to discharge. The patient will be continued on antibiotics and her white blood cell count will be monitored. I have also discussed the patient's case with the patient's admitting hospitalist, Dr. Landin. VANI GOYAL MD Aug 27, 2018 23:17
[2018-08-27] MEDS ORDERED: METOCLOPRAMIDE 10 MG INJ IV PRN (23:30)
[2018-08-28] MEDS: ALBUTEROL/IPRATROPIUM (NEB) 3 ML AMP HHN SCH ×6 (00:27→20:04)
[2018-08-28 02:00] VITALS: BP 122/66; PULSE 84; RESP 20
[2018-08-28] MEDS: VANCOMYCIN 1.5 GM/NS 250 ML 250 ML IVPB SCH ×2 (02:27→14:36)
[2018-08-28] MEDS: PIPER-TAZO 3.375 GM IV (PMX) 100 ML IVPB SCH (05:22)
[2018-08-28 07:28] VITALS: BP 130/61; PULSE 91; RESP 18
[2018-08-28] MEDS: INSULIN ASPART [NOVOLOG] 3 ML PEN SC SCH ×4 (08:00→20:56)
[2018-08-28] MEDS: ESCITALOPRAM 10 MG TAB PO SCH (08:17)
[2018-08-28] MEDS: DOCUSATE SODIUM 100 MG CAP PO SCH ×2 (08:18→20:55)
[2018-08-28] MEDS: PRAMIPEXOLE 0.25 MG TAB PO SCH ×2 (08:19→21:13)
[2018-08-28] MEDS: GABAPENTIN 300 MG CAP PO SCH ×3 (08:19→20:55)
[2018-08-28] MEDS ORDERED: LACTULOSE 30ML CUP PO ONE (10:00)
[2018-08-28] MEDS ORDERED: CEFTRIAXONE 1 GM/50 ML (PMX) 50 ML IVPB SCH (10:00)
[2018-08-28] MEDS: HYDROCODONE/APAP (5/325) TAB PO PRN (10:18)
[2018-08-28] MEDS: GUAIFENESIN/DM 5ML CUP PO PRN (10:58)
--- NOTE | 2018-08-28 11:21 | PN ---
Date/Time of Note Date/Time of Note DATE: 08/28/18 TIME: 11:19 Subjective Patient feels better. Less low back pain. Still with abdominal pain and mild nausea Objective Vitals Vital Signs Date Temp Pulse Resp B/P (MAP) Pulse Ox O2 O2 Flow FiO2 Time Delivery Rate 08/28/18 Nasal 2.0 09:13 Cannula 08/28/18 88 22 96 07:37 08/28/18 98.4 130/61 07:28 (84) 08/26/18 28 07:42 Intake and Output 08/27/18 08/27/18 08/28/18 1515:00 23:00 07:00 IntakeIntake Total 700 ml 452 ml 750 ml OutputOutput Total 1000 ml 656 ml 705 ml BalanceBalance -300 ml -204 ml 45 ml Clear to auscultation bilaterally Regular rate and rhythm Soft mildly tender no rebound or guarding. Normoactive bowel sounds Lumbar area with drain in place No edema Nonfocal Results Result Diagram: 08/28/18 0458 08/28/18 0458 Medications Medications Current Medications Zolpidem Tartrate (Ambien) 5 mg HS MAY REPEAT X 1 PRN PO INSOMNIA; Start 08/26/18 at 12:00 Ondansetron HCl (Zofran Inj) 4 mg Q4H PRN IV NAUSEA AND/OR VOMITING Last administered on 08/27/18at 20:38; Admin Dose 4 MG; Start 08/26/18 at 12:00 Insulin Aspart (Novolog Insulin Pen) NOVOLOG *MODERATE* ALGORITHM WITH MEALS BEDTIME SC Last administered on 08/27/18at 20:51; Admin Dose 1 UNIT; Start 08/26/18 at 12:00 Miscellaneous Information 1 ea NOTE XX ; Start 08/26/18 at 12:30 Glucose (Glutose) 15 gm Q15M PRN PO DECREASED GLUCOSE; Start 08/26/18 at 12:30 Glucose (Glutose) 22.5 gm Q15M PRN PO DECREASED GLUCOSE; Start 08/26/18 at 12: 30 Dextrose (D50w Syringe) 25 ml Q15M PRN IV DECREASED GLUCOSE; Start 08/26/18 at 12:30 Dextrose (D50w Syringe) 50 ml Q15M PRN IV DECREASED GLUCOSE; Start 08/26/18 at 12:30 Glucagon (Glucagen) 1 mg Q15M PRN IM DECREASED GLUCOSE; Start 08/26/18 at 12:30 Glucose (Glutose) 15 gm Q15M PRN BUCCAL DECREASED GLUCOSE; Start 08/26/18 at 12:30 Albuterol/ Ipratropium (Duoneb) 3 ml Q4H RESP THERAPY HHN Last administered on 08/28/18at 07:36; Admin Dose 3 ML; Start 08/26/18 at 21:00 Atorvastatin Calcium (Lipitor) 20 mg QHS PO Last administered on 08/27/18at 20:40; Admin Dose 20 MG; Start 08/26/18 at 21:00 Ergocalciferol (Drisdol) 50,000 unit Cunningham@0900 PO ; Start 08/31/18 at 09:00 Escitalopram Oxalate (Lexapro) 10 mg DAILY PO Last administered on 08/28/18at 08:17; Admin Dose 10 MG; Start 08/27/18 at 09:00 Gabapentin (Neurontin) 600 mg TID PO Last administered on 08/26/18at 23:08; Admin Dose 600 MG; Start 08/26/18 at 21:00 Insulin Glargine (Lantus) 30 units QHS SC Last administered on 08/27/18at 23:03; Admin Dose 30 UNITS; Start 08/26/18 at 21:00 Lamotrigine (Lamictal) 100 mg QHS PO Last administered on 08/27/18at 20:40; Admin Dose 100 MG; Start 08/26/18 at 21:00 Pramipexole (Mirapex) 0.25 mg DAILY PO ; Start 08/27/18 at 09:00 Trazodone HCl (Desyrel) 50 mg QHS PRN PO NEEDED; Start 08/26/18 at 20:00 Acetaminophen (Tylenol Tab) 650 mg Q6H PRN PO MILD PAIN(1-3)OR ELEVATED TEMP Last administered on 08/26/18at 23:29; Admin Dose 650 MG; Start 08/26/18 at 23:00 Acetaminophen/ Hydrocodone Bitart ([place] (5/325)) 1 tab Q4H PRN PO MODERATE PAIN LEVEL 4-6 Last administered on 08/28/18at 10:18; Admin Dose 1 TAB; Start 08/27/18 at 17:30 Sodium Chloride 1,000 ml @ 75 mls/hr [id number] IV Last administered on 08/27/18 22:59; Admin Dose 75 MLS/HR; Start 08/27/18 at 22:30 Docusate Sodium (Colace) 100 mg BID PO Last administered on 08/28/18at 08:18; Admin Dose 100 MG; Start 08/27/18 at 23:00 Metoclopramide HCl (Reglan) 5 mg Q6H PRN IV NAUSEA Last administered on 08/27/18at 23:37; Admin Dose 5 MG; Start 08/27/18 at 23:30 Ceftriaxone Sodium 50 ml @ 100 mls/hr Q24H IVPB Last administered on 08/28/18at 10:19; Admin Dose 100 MLS/HR; Start 08/28/18 at 10:00 Guaifenesin/ Dextromethorphan (Robitussin Dm Liquid Cup) 10 ml Q4H PRN PO COUGH Last administered on 08/28/18at 10:58; Admin Dose 10 ML; Start 08/28/18 at 11:00 VTE Prophylaxis Risk score (from Nsg)>0 risk: 3 SCD applied (from Nsg): Yes Lines/Catheters IV Catheter Type: Saline Lock Locke in Place: No Assessment/Plan Assessment/Plan 52-year-old female with polymicrobial postop lumbar wound infection Postop day #2 I&D of lumbar wound and drain placement 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
[2018-08-28] MEDS ORDERED: VANCOMYCIN IV PER PHARMACY XX SCH (11:30)
[2018-08-28] MEDS: SOD CHLORIDE 0.9% 1,000 ML IV SCH ×2 (11:50→21:12)
[2018-08-28] MEDS: ONDANSETRON 4 MG INJ IV PRN ×2 (16:10→23:01)
[2018-08-28] MEDS: ACETAMINOPHEN 325 MG TAB PO PRN (18:10)
[2018-08-28 19:31] VITALS: BP 122/59; PULSE 92; RESP 16
[2018-08-28] MEDS: LAMOTRIGINE 100 MG TAB PO SCH (20:55)
[2018-08-28] MEDS: ATORVASTATIN 20 MG TAB PO SCH (20:55)
[2018-08-28] MEDS: INSULIN GLARGINE [LANTus] (100 UNITS/ML) SYG SC SCH (20:57)
[2018-08-28] MEDS: CEFTRIAXONE 1 GM/50 ML (PMX) 50 ML IVPB SCH (21:12)
[2018-08-29] MEDS: ALBUTEROL/IPRATROPIUM (NEB) 3 ML AMP HHN SCH ×6 (00:20→21:03)
[2018-08-29 01:52] VITALS: BP 137/56; PULSE 101; RESP 17
[2018-08-29] MEDS: VANCOMYCIN 1.5 GM/NS 250 ML 250 ML IVPB SCH ×3 (02:24→18:06)
[2018-08-29] MEDS: ONDANSETRON 4 MG INJ IV PRN ×4 (03:55→17:40)
[2018-08-29] MEDS: HYDROCODONE/APAP (5/325) TAB PO PRN ×3 (04:00→13:35)
[2018-08-29 07:23] VITALS: BP 129/63; PULSE 90; RESP 19
[2018-08-29] MEDS: INSULIN ASPART [NOVOLOG] 3 ML PEN SC SCH ×4 (08:00→20:36)
[2018-08-29] MEDS: GUAIFENESIN/DM 5ML CUP PO PRN ×3 (08:12→18:45)
[2018-08-29] MEDS: ESCITALOPRAM 10 MG TAB PO SCH (08:13)
[2018-08-29] MEDS: DOCUSATE SODIUM 100 MG CAP PO SCH ×2 (08:13→20:33)
[2018-08-29] MEDS: GABAPENTIN 300 MG CAP PO SCH ×2 (08:15→12:46)
[2018-08-29] MEDS: CEFTRIAXONE 1 GM/50 ML (PMX) 50 ML IVPB SCH (09:19)
[2018-08-29] MEDS ORDERED: LEVOFLOXACIN 750 MG TABLET PO SCH (11:00)
[2018-08-29] MEDS ORDERED: Vancomycin Iv Per Pharmacy XX (11:02)
[2018-08-29] MEDS ORDERED: ZOLP5TAB PO (11:02)
[2018-08-29] MEDS ORDERED: GUAI120S25 PO (11:02)
[2018-08-29] MEDS ORDERED: HYDR-3980 PO (11:02)
[2018-08-29] MEDS ORDERED: ACET325T33 PO (11:02)
[2018-08-29] MEDS ORDERED: VANC1.5P10 IV (11:02)
[2018-08-29] MEDS: morphine 2 MG INJ IV PRN ×2 (12:46→17:32)
[2018-08-29 13:45] VITALS: BP 112/55; PULSE 102; RESP 19
[2018-08-29] MEDS: SOD CHLORIDE 0.9% 1,000 ML IV SCH (14:30)
[2018-08-29] MEDS ORDERED: HYDROCODONE/APAP (5/325) TAB PO PRN (15:00)
[2018-08-29] MEDS: NYSTATIN SUSP 5 ML CUP PO SCH ×2 (17:35→20:33)
[2018-08-29 20:07] VITALS: BP 139/63; PULSE 87; RESP 19
[2018-08-29] MEDS: LAMOTRIGINE 100 MG TAB PO SCH (20:33)
[2018-08-29] MEDS: ATORVASTATIN 20 MG TAB PO SCH (20:33)
[2018-08-29] MEDS: INSULIN GLARGINE [LANTus] (100 UNITS/ML) SYG SC SCH (20:36)
[2018-08-29] MEDS ORDERED: GABAPENTIN 300 MG CAP PO SCH (21:00)
--- NOTE | 2018-08-30 05:52 | DS ---
DATE OF ADMISSION: 08/26/2018 DATE OF DISCHARGE: 08/29/2018 DISCHARGE DIAGNOSES: 1. A 52-year-old female with polymicrobial postoperative lumbar wound infection. 2. Status post incision and drainage of lumbar wound and drain placement. 3. Gram-negative humberto bacteremia, Klebsiella pneumonia. 4. Chronic pain syndrome. 5. Moderate obesity. 6. Hyperlipidemia. 7. Chronic depression. 8. Type 2 diabetes mellitus. HOSPITAL COURSE: A 52-year-old female status post lumbar laminectomy on 08/13/2018, presented to the emergency room with complaint of low back pain. Initial evaluation revealed leukocytosis with white blood cell count of 20,500. The patient was seen in consultation by Dr. Goyal. She was taken to the operating room. There was m inimal fluid collection in the lumbar area. The area underwent irrigation. A lumbar drain was place d. The patient developed bacteremia. Blood cultures grew Klebsiella pneumonia. Lumbar wound also s howed polymicrobial infection with MRSA as well as Klebsiella pneumonia and E. coli. The patient had significant improvement in her back pain. White blood cell count improved significantly. The patie nt was afebrile throughout the hospitalization. She is in stable condition for discharge to long term facility. IV vancomycin needs to be continued for 10 days. She was prescribed Levaquin for additional 7 days. The case was discussed with Dr. Goyal. PLAN: Discharge to long term facility. MEDICATIONS ON DISCHARGE: 1. IV vancomycin 1.5 grams q.8h. x10 days. 2. Levaquin 750 mg p.o. daily x7 days. 3. [place] 10/325 one tablet every 4 hours as needed. 4. Ambien 5 mg p.o. at bedtime. 5. Lipitor 20 mg p.o. at bedtime. 6. Trulicity 1.5 grams subq every Saturday. 7. Gabapentin 600 mg t.i.d. 8. Lantus insulin 30 units daily. 9. Lamotrigine 100 mg at bedtime. 10. Melatonin 10 mg at bedtime. 11. Pramipexole 0.25 mg as needed. 11. Trazodone 50 mg at bedtime. 12. Escitalopram 10 mg daily. FOLLOWUP: 1. Follow up with PCP. 2. Follow up with Dr. Goyal in 2 weeks. Dictated By: MICHAEL MITCHELL/JAYLEN Conf#: [id number] DID#: [id number] CC: VANI GOYAL MD;*End*
[2018-08-31] MEDS ORDERED: ERGOCALCIFEROL 50,000 UNIT CAP PO SCH (09:00)
== END 2018-08-29 22:35 | DRG 857 ==
LOC: E/R 04:20 → 2NE 09:36 → ICU 21:25 → 2NE 08-27 15:55
PROVIDERS: ADMIT Internal Medicine; ATTEND Internal Medicine
PROC: 0JD70ZZ Extraction of Back Subcutaneous Tissue and Fascia, Open Approach (ICD-10-PCS; principal; 2018-08-26 18:00)
DX: T81.49XA Infection following a procedure, other surgical site, initial encounter (principal); T81.31XA Disruption of external operation (surgical) wound, not elsewhere classified, initial encounter; Z68.41 Body mass index [BMI] 40.0-44.9, adult; R78.81 Bacteremia; E66.9 Obesity, unspecified; E11.8 Type 2 diabetes mellitus with unspecified complications; B95.62 Methicillin resistant Staphylococcus aureus infection as the cause of diseases classified elsewhere; B96.5 Pseudomonas (aeruginosa) (mallei) (pseudomallei) as the cause of diseases classified elsewhere; B96.20 Unspecified Escherichia coli [E. coli] as the cause of diseases classified elsewhere; B95.2 Enterococcus as the cause of diseases classified elsewhere; Z72.0 Tobacco use; F31.9 Bipolar disorder, unspecified; J45.909 Unspecified asthma, uncomplicated; M21.371 Foot drop, right foot; E78.5 Hyperlipidemia, unspecified
CPT/HCPCS: 36415; 71045; 72100; 73562; 80048; 80053; 80202; 81003; 82140; 82565; 82962; 83036; 83605; 83690; 84520; 84703; 85025; 85610; 85730; 87070; 87075; 87086; 94640; 94644; 94664; 96365; 96375; 96376; 97110; 97116; 97162; 97530; J0696; J1170; J1815; J1956; J2175; J2250; J2270; J2370; J2405; J2543; J2765; J3010; J3370; J7030; J7040; J7042

== ENCOUNTER 2018-09-29 12:32 | Emergency (ER) | payer OTHER ==
[~2018-09-29] VITALS: Ht 165.1 cm; Wt 106.9 kg
[~2018-09-29 12:32] MED LIST changes: +ACET325T33 PO; -DIAZ5TAB PO; +GUAI120S25 PO; +HYDR-3980 PO; +IRBE75TA8 ORAL; +VANC1.5P10 IV; +Vancomycin Iv Per Pharmacy XX; +ZOLP5TAB PO
[2018-09-29 13:13] VITALS: Ht 165.1 cm; Wt 106.9 kg
[2018-09-29 17:58] VITALS: BP 133/72; PULSE 87; RESP 18
== END 2018-09-29 18:41 | disposition home or self-care (01) ==
LOC: E/R 12:32
DX: R10.9 Unspecified abdominal pain (principal); J44.9 Chronic obstructive pulmonary disease, unspecified; I10 Essential (primary) hypertension; E11.9 Type 2 diabetes mellitus without complications; E66.01 Morbid (severe) obesity due to excess calories; F17.210 Nicotine dependence, cigarettes, uncomplicated; Z68.39 Body mass index [BMI] 39.0-39.9, adult; Z79.4 Long term (current) use of insulin
CPT/HCPCS: 36415; 74176; 80053; 81003; 83690; 85025; 96374; 96375; 96376; J1170; J2405; J3360; Z7502